=== PATIENT | male | born 1980 | race Caucasian/White ===

== ENCOUNTER 2017-05-02 21:52 | Emergency (ER) | payer MEDICAID ==
[~2017-05-02] VITALS: Ht 180.3 cm; Wt 89.8 kg
[2017-05-02 23:00] VITALS: BP 132/89
== END 2017-05-02 23:00 | disposition home or self-care (01) ==
LOC: ED 21:52
DX: B86 Scabies (principal)

== ENCOUNTER 2017-05-13 11:07 | Emergency (ER) | payer MEDICAID ==
[2017-05-13 13:12] VITALS: BP 110/64
== END 2017-05-13 13:12 | disposition home or self-care (01) ==
LOC: ED 11:07
DX: L30.9 Dermatitis, unspecified (principal)

== ENCOUNTER 2018-11-03 08:06 | Emergency (ER) | payer MEDICAID ==
[~2018-11-03] VITALS: Ht 182.9 cm; Wt 89.8 kg
[2018-11-03 08:11] VITALS: Ht 182.9 cm; Wt 89.8 kg
[2018-11-03 09:54] VITALS: BP 167/98
== END 2018-11-03 09:30 | disposition home or self-care (01) ==
LOC: ED 08:06
DX: S46.912A Strain of unspecified muscle, fascia and tendon at shoulder and upper arm level, left arm, initial encounter (principal); X58.XXXA Exposure to other specified factors, initial encounter; Y93.29 Activity, other involving ice and snow; Y92.89 Other specified places as the place of occurrence of the external cause; Y99.8 Other external cause status
CPT/HCPCS: J1885

== ENCOUNTER 2019-01-04 07:03 | Inpatient (IN) | payer MEDICAID | END 2019-01-15 14:44 | disposition home or self-care (01) | LOC: ED 07:03 → DU 08:38 → ED 07:03 → DU 08:38 → ED 07:03 → DU 08:38 → ED 07:03 → DU 08:38 | PROC: 0W9B30Z Drainage of Left Pleural Cavity with Drainage Device, Percutaneous Approach (ICD-10-PCS; principal; 2019-01-04) | DX: J95.811 Postprocedural pneumothorax (principal); Z68.26 Body mass index [BMI] 26.0-26.9, adult; Y93.23 Activity, snow (alpine) (downhill) skiing, snowboarding, sledding, tobogganing and snow tubing; Y93.89 Activity, other specified; Y92.89 Other specified places as the place of occurrence of the external cause; Y83.9 Surgical procedure, unspecified as the cause of abnormal reaction of the patient, or of later complication, without mention of misadventure at the time of the procedure ==

== ENCOUNTER 2019-03-13 09:55 | Emergency (ER) | payer MEDICAID ==
[~2019-03-13] VITALS: Ht 182.9 cm; Wt 90.3 kg
[~2019-03-13 09:55] MED LIST: TRIAMCINOLONE AC0.13; TRIAMCINOLONE AC0.51 TOP
[2019-03-13 09:57] VITALS: Ht 182.9 cm; Wt 90.3 kg
[2019-03-13 12:45] VITALS: BP 162/111
== END 2019-03-13 13:28 | disposition home or self-care (01) ==
LOC: ED 09:55
DX: R09.1 Pleurisy (principal); J93.9 Pneumothorax, unspecified; Z98.890 Other specified postprocedural states

== ENCOUNTER 2021-01-10 12:26 | Emergency (ER) | payer MEDICAID ==
[~2021-01-10] VITALS: Ht 182.9 cm; Wt 89.8 kg
[2021-01-10 12:47] VITALS: Ht 182.9 cm; Wt 89.8 kg
[2021-01-10 14:33] VITALS: BP 149/99
== END 2021-01-10 14:33 | disposition home or self-care (01) ==
LOC: ED 12:26
DX: S20.211A Contusion of right front wall of thorax, initial encounter (principal); Z98.890 Other specified postprocedural states; X58.XXXA Exposure to other specified factors, initial encounter; Y93.89 Activity, other specified; Y92.89 Other specified places as the place of occurrence of the external cause; Y99.8 Other external cause status